=== PATIENT | female | born 1970 | race Caucasian/White ===

== ENCOUNTER 2020-01-27 23:08 | Inpatient (IN) ==
[2020-01-28] MEDS ORDERED: GLUCAGON 1 MG VIAL IM PRN (01:39)
[2020-01-28] MEDS ORDERED: diphenhydrAMINE CAP 25 MG CAPSULE PO PRN (01:39)
[2020-01-28] MEDS ORDERED: ZALEPLON 5 MG CAPSULE PO PRN (01:39)
[2020-01-28] MEDS ORDERED: NICOTINE 21 MG/24 HR PATCH TRANSDERM PRN (01:39)
[2020-01-28] MEDS ORDERED: DEXTROSE 10% 250 ML BAG IV PRN (01:39)
[2020-01-28] MEDS ORDERED: hydrALAZINE 20 MG/1 ML VIAL IV PRN (01:39)
[2020-01-28 02:20] LABS: Blood Urea Nitrogen 9 MG/DL (7-18); Calcium 8.3 MG/DL (8.5-10.1); Estimated Glom Filtration Rate 100 ML/MIN; Glucose 123 MG/DL (74-106); Osmolality,Calculated 269.1 MOS/KG (273-304)
[2020-01-28 02:40] LABS: Basophils # 0.1 10*3/uL (0.0-0.2); Basophils % 0.5 % (0.0-0.8); Eosinophils % 0.1 % (0.00-10.9); Hematocrit 53.4 VOL% (35.7-47.0); Hemoglobin 17.1 GM/DL (12.0-16.0); Immature Granulocytes % 0.6 %; Immature Granulocytes Absolute 0.08 #; Lymphocytes # 0.9 10*3/uL (1.4-4.0); Lymphocytes % 6.1 % (21.3-54.2); Mean Corpuscular Volume 95.4 FL (87-102); Mean Platelet Volume 11.4 FL (9.6-12.0); Monocytes % 4.5 % (1.7-12.7); Neutrophils % 88.2 % (38.7-73.9); Platelet Count 239 T/CUMM (130-400); Red Cell Distribution Width 14.4 % (9.3-17.3); White Blood Count 14.3 T/CUMM (4-12)
[2020-01-28] MEDS: cefTRIAXone 1,000 MG in SYRINGE 1 EACH IV SCH (03:18)
[2020-01-28] MEDS: SODIUM CHLOR 0.9% KCL 20 MEQ 20 MEQ/1,000 ML BAG IV SCH ×2 (03:22→17:38)
[2020-01-28] MEDS: metroNIDAZOLE INJ 500 MG in PREMIX 1 EACH IV SCH ×3 (03:23→17:36)
[2020-01-28] MEDS: MORPHINE 4 MG/1 ML VIAL IV PRN ×2 (03:28→21:08)
[2020-01-28] MEDS: ONDANSETRON 4 MG/2 ML VIAL IV PRN ×2 (03:31→21:09)
[2020-01-28 05:01] LABS: Lymphocytes 8 % (20-55); Segmented Neutrophils 84 % (50-85); Total Cells Counted 100
[2020-01-28 05:02] LABS: Anisocytosis Slight; Platelet Estimate Normal
[2020-01-28 06:13] LABS: Albumin 3.1 G/DL (3.4-5.0); Bilirubin,Direct 2.73 MG/DL (0.0-0.20); Bilirubin,Indirect 1.2 MG/DL (0.0-1.0); Bilirubin,Total 3.9 MG/DL (0.2-1.0); Total Protein 7.4 G/DL (6.4-8.3)
[2020-01-28] MEDS: ALBUTEROL 2.5 MG/3 ML NEB RESP TX SCH ×3 (07:22→19:30)
[2020-01-28] MEDS: PANTOPRAZOLE 40 MG VIAL IV SCH (10:00)
[2020-01-28] MEDS: ENOXAPARIN 40 MG/0.4 ML SYRINGE SUBCUT SCH (10:01)
[2020-01-28 11:07] LABS: Hepatitis B Core IgM Quant 0.16 Index; Hepatitis B Surface Ag Quant 0.22 Index; Hepatitis B Surface Ag Result Negative (Negative); Hepatitis C Virus Ab Quant 0.08 Index; Hepatitis C Virus Ab Result Negative (Negative)
[2020-01-29] MEDS: ALBUTEROL 2.5 MG/3 ML NEB RESP TX SCH ×4 (00:20→19:35)
[2020-01-29] MEDS: ONDANSETRON 4 MG/2 ML VIAL IV PRN ×5 (02:18→20:27)
[2020-01-29] MEDS: cefTRIAXone 1,000 MG in SYRINGE 1 EACH IV SCH (02:18)
[2020-01-29] MEDS: MORPHINE 4 MG/1 ML VIAL IV PRN ×6 (02:18→22:33)
[2020-01-29] MEDS: SODIUM CHLOR 0.9% KCL 20 MEQ 20 MEQ/1,000 ML BAG IV SCH ×2 (02:19→16:19)
[2020-01-29] MEDS: metroNIDAZOLE INJ 500 MG in PREMIX 1 EACH IV SCH ×3 (02:19→18:12)
[2020-01-29 06:32] LABS: Basophils # 0.1 10*3/uL (0.0-0.2); Basophils % 0.3 % (0.0-0.8); Eosinophils % 0.1 % (0.00-10.9); Hematocrit 46.8 VOL% (35.7-47.0); Hemoglobin 15.4 GM/DL (12.0-16.0); Immature Granulocytes % 0.9 %; Immature Granulocytes Absolute 0.17 #; Lymphocytes # 1.7 10*3/uL (1.4-4.0); Mean Corpuscular HGB Conc 32.9 GM/DL (32-36); Mean Corpuscular Volume 94.7 FL (87-102); Mean Platelet Volume 10.4 FL (9.6-12.0); Monocytes % 6.6 % (1.7-12.7); Neutrophils % 83.1 % (38.7-73.9); Platelet Count 236 T/CUMM (130-400); Red Blood Count 4.94 MC/CUMM (3.8-5.5); White Blood Count 18.7 T/CUMM (4-12)
[2020-01-29 07:00] LABS: Bilirubin,Direct 0.41 MG/DL (0.0-0.20); Bilirubin,Indirect 1.4 MG/DL (0.0-1.0); Bilirubin,Total 1.8 MG/DL (0.2-1.0); Osmolality,Calculated 281.3 MOS/KG (273-304); Total Protein 7.5 G/DL (6.4-8.3)
[2020-01-29] MEDS: ENOXAPARIN 40 MG/0.4 ML SYRINGE SUBCUT SCH (09:27)
[2020-01-29] MEDS: VENLAFAXINE XR 75 MG CAPSULE PO SCH (09:27)
[2020-01-29] MEDS: PANTOPRAZOLE 40 MG VIAL IV SCH (09:27)
[2020-01-30] MEDS: MORPHINE 4 MG/1 ML VIAL IV PRN ×5 (00:57→22:13)
[2020-01-30] MEDS: ONDANSETRON 4 MG/2 ML VIAL IV PRN ×2 (00:58→19:36)
[2020-01-30] MEDS: ALBUTEROL 2.5 MG/3 ML NEB RESP TX SCH ×4 (01:19→19:13)
[2020-01-30] MEDS: cefTRIAXone 1,000 MG in SYRINGE 1 EACH IV SCH (01:22)
[2020-01-30] MEDS: metroNIDAZOLE INJ 500 MG in PREMIX 1 EACH IV SCH ×3 (02:33→17:50)
[2020-01-30 05:10] LABS: Basophils # 0.1 10*3/uL (0.0-0.2); Basophils % 0.4 % (0.0-0.8); Eosinophils % 0.1 % (0.00-10.9); Hematocrit 42.6 VOL% (35.7-47.0); Hemoglobin 13.5 GM/DL (12.0-16.0); Immature Granulocytes % 0.9 %; Immature Granulocytes Absolute 0.14 #; Lymphocytes # 1.5 10*3/uL (1.4-4.0); Lymphocytes % 9.3 % (21.3-54.2); Mean Corpuscular HGB Conc 31.7 GM/DL (32-36); Mean Corpuscular Volume 95.9 FL (87-102); Mean Platelet Volume 10.8 FL (9.6-12.0); Neutrophils % 81.3 % (38.7-73.9); Platelet Count 217 T/CUMM (130-400); Red Blood Count 4.44 MC/CUMM (3.8-5.5); Red Cell Distribution Width 14.9 % (9.3-17.3); White Blood Count 16.3 T/CUMM (4-12)
[2020-01-30 05:18] LABS: INR 1.1; PT Patient Result 11.4 SECS (9.8-11.9)
[2020-01-30 05:28] LABS: Albumin 2.6 G/DL (3.4-5.0); Bilirubin,Direct 0.34 MG/DL (0.0-0.20); Bilirubin,Indirect 1.7 MG/DL (0.0-1.0); Calcium 8.1 MG/DL (8.5-10.1); Osmolality,Calculated 281.3 MOS/KG (273-304); Total Protein 6.7 G/DL (6.4-8.3)
[2020-01-30] MEDS: SODIUM CHLOR 0.9% KCL 20 MEQ 20 MEQ/1,000 ML BAG IV SCH ×3 (06:18→15:34)
[2020-01-30] MEDS ORDERED: INDOMETHACIN SUPP 50 MG SUPP RECTAL ONE ×2 (08:00→09:00)
[2020-01-30] MEDS ORDERED: propofoL 200 MG/20 ML VIAL IV ONE (09:00)
[2020-01-30] MEDS ORDERED: ROCURONIUM 100 MG/10 ML VIAL IV ONE (09:00)
[2020-01-30] MEDS ORDERED: LIDOCAINE 2% 5 ML VIAL ONE (09:00)
[2020-01-30] MEDS ORDERED: SUCCINYLCHOLINE 200 MG/10 ML VIAL ONE (09:00)
[2020-01-30] MEDS ORDERED: SEVOFLURANE 1 UNIT/15 MINUTE INH ONE (09:00)
[2020-01-30] MEDS: LACTATED RINGERS 1,000 ML IV SCH (09:09)
[2020-01-30] MEDS: VENLAFAXINE XR 75 MG CAPSULE PO SCH (11:58)
[2020-01-30] MEDS: PANTOPRAZOLE 40 MG VIAL IV SCH (11:58)
[2020-01-30] MEDS: POTASSIUM CHLORIDE RIDER 10 MEQ in PREMIX 1 EACH IV PRN ×3 (15:00→17:00)
[2020-01-31] MEDS: cefTRIAXone 1,000 MG in SYRINGE 1 EACH IV SCH (01:10)
[2020-01-31] MEDS: ALBUTEROL 2.5 MG/3 ML NEB RESP TX SCH ×5 (01:45→19:16)
[2020-01-31] MEDS: ONDANSETRON 4 MG/2 ML VIAL IV PRN ×3 (01:52→22:33)
[2020-01-31] MEDS: MORPHINE 4 MG/1 ML VIAL IV PRN ×7 (01:53→22:33)
[2020-01-31] MEDS: metroNIDAZOLE INJ 500 MG in PREMIX 1 EACH IV SCH ×3 (01:56→17:40)
[2020-01-31 07:18] LABS: Basophils # 0.1 10*3/uL (0.0-0.2); Basophils % 0.6 % (0.0-0.8); Eosinophils # 0.2 10*3/uL (0.0-0.87); Eosinophils % 1.3 % (0.00-10.9); Hematocrit 39.8 VOL% (35.7-47.0); Hemoglobin 12.8 GM/DL (12.0-16.0); Immature Granulocytes % 0.7 %; Lymphocytes # 1.4 10*3/uL (1.4-4.0); Lymphocytes % 10.7 % (21.3-54.2); Mean Corpuscular HGB Conc 32.2 GM/DL (32-36); Mean Corpuscular Volume 96.1 FL (87-102); Mean Platelet Volume 10.5 FL (9.6-12.0); Monocytes % 8.8 % (1.7-12.7); Neutrophils % 77.9 % (38.7-73.9); Platelet Count 211 T/CUMM (130-400); Red Blood Count 4.14 MC/CUMM (3.8-5.5); Red Cell Distribution Width 14.6 % (9.3-17.3); White Blood Count 13.5 T/CUMM (4-12)
[2020-01-31] MEDS: SODIUM CHLOR 0.9% KCL 20 MEQ 20 MEQ/1,000 ML BAG IV SCH ×2 (07:25→20:05)
[2020-01-31] MEDS ORDERED: INDOMETHACIN SUPP 50 MG SUPP RECTAL ONE (08:00)
[2020-01-31] MEDS: LACTATED RINGERS 1,000 ML IV SCH (08:07)
[2020-01-31 08:10] LABS: Albumin 2.5 G/DL (3.4-5.0); Bilirubin,Total 0.7 MG/DL (0.2-1.0); Calcium 7.8 MG/DL (8.5-10.1); Osmolality,Calculated 271.8 MOS/KG (273-304); Total Protein 6.8 G/DL (6.4-8.3)
[2020-01-31] MEDS: VENLAFAXINE XR 75 MG CAPSULE PO SCH (09:05)
[2020-01-31] MEDS: PANTOPRAZOLE 40 MG VIAL IV SCH (09:05)
[2020-01-31] MEDS: ACETAMINOPHEN 325 MG TABLET PO PRN (10:12)
[2020-02-01] MEDS: ALBUTEROL 2.5 MG/3 ML NEB RESP TX SCH ×4 (00:30→19:23)
[2020-02-01] MEDS: cefTRIAXone 1,000 MG in SYRINGE 1 EACH IV SCH (01:38)
[2020-02-01] MEDS: metroNIDAZOLE INJ 500 MG in PREMIX 1 EACH IV SCH ×4 (01:40→18:03)
[2020-02-01] MEDS: ONDANSETRON 4 MG/2 ML VIAL IV PRN (02:35)
[2020-02-01] MEDS: MORPHINE 4 MG/1 ML VIAL IV PRN ×2 (02:36→05:16)
[2020-02-01 05:28] LABS: Basophils # 0.1 10*3/uL (0.0-0.2); Basophils % 0.5 % (0.0-0.8); Eosinophils # 0.3 10*3/uL (0.0-0.87); Eosinophils % 1.9 % (0.00-10.9); Hematocrit 39.9 VOL% (35.7-47.0); Hemoglobin 12.6 GM/DL (12.0-16.0); Immature Granulocytes % 0.5 %; Immature Granulocytes Absolute 0.08 #; Lymphocytes # 1.6 10*3/uL (1.4-4.0); Lymphocytes % 10.7 % (21.3-54.2); Mean Corpuscular HGB Conc 31.6 GM/DL (32-36); Mean Corpuscular Volume 97.3 FL (87-102); Mean Platelet Volume 10.6 FL (9.6-12.0); Monocytes % 8.1 % (1.7-12.7); Neutrophils % 78.3 % (38.7-73.9); Platelet Count 254 T/CUMM (130-400); Red Cell Distribution Width 14.5 % (9.3-17.3); White Blood Count 14.8 T/CUMM (4-12)
[2020-02-01 05:45] LABS: INR 1.1; PT Patient Result 11.3 SECS (9.8-11.9)
[2020-02-01 05:53] LABS: Albumin 2.5 G/DL (3.4-5.0); Bilirubin,Total 1.1 MG/DL (0.2-1.0); Calcium 8.1 MG/DL (8.5-10.1); Total Protein 6.8 G/DL (6.4-8.3)
[2020-02-01] MEDS ORDERED: ceFAZolin 1,000 MG in SYRINGE 1 EACH IV ONE (06:00)
[2020-02-01] MEDS ORDERED: BUPIVACAINE MPF 0.25% 30 ML VIAL ONE (06:41)
[2020-02-01] MEDS ORDERED: LIDOCAINE 1%/EPI INJ 20 ML VIAL ONE (06:41)
[2020-02-01] MEDS ORDERED: SCOPOLAMINE 1.5 MG PATCH TRANSDERM ONE ×2 (06:59→07:02)
[2020-02-01] MEDS: SODIUM CHLOR 0.9% KCL 20 MEQ 20 MEQ/1,000 ML BAG IV SCH ×4 (07:11→17:06)
[2020-02-01] MEDS ORDERED: SUGAMMADEX 200 MG/2 ML VIAL IV ONE (08:05)
[2020-02-01] MEDS ORDERED: GLUCAGON 1 MG VIAL ONE (08:19)
[2020-02-01] MEDS ORDERED: TISSUE ADHESIVE 1 EACH APPLICATOR TOP ONE (08:43)
[2020-02-01] MEDS ORDERED: propofoL 200 MG/20 ML VIAL IV ONE (09:09)
[2020-02-01] MEDS ORDERED: fentaNYL 100 MCG/2 ML VIAL ONE (09:09)
[2020-02-01] MEDS ORDERED: LIDOCAINE 2% 5 ML VIAL ONE (09:09)
[2020-02-01] MEDS ORDERED: SEVOFLURANE 1 UNIT/15 MINUTE INH ONE (09:09)
[2020-02-01] MEDS ORDERED: MIDAZOLAM 2 MG/2 ML VIAL ONE (09:10)
[2020-02-01] MEDS ORDERED: LACTATED RINGERS 1,000 ML IV ONE (09:10)
[2020-02-01] MEDS ORDERED: DEXAMETHASONE 4 MG/1 ML VIAL ONE (09:10)
[2020-02-01] MEDS ORDERED: KETOROLAC 30 MG/1 ML VIAL ONE (09:10)
[2020-02-01] MEDS ORDERED: ONDANSETRON 4 MG/2 ML VIAL ONE (09:10)
[2020-02-01] MEDS ORDERED: ROCURONIUM 100 MG/10 ML VIAL IV ONE (09:10)
[2020-02-01] MEDS: LACTATED RINGERS 1,000 ML IV SCH (09:13)
[2020-02-01] MEDS: VENLAFAXINE XR 75 MG CAPSULE PO SCH (10:00)
[2020-02-01] MEDS: PANTOPRAZOLE 40 MG VIAL IV SCH (10:00)
[2020-02-02] MEDS: ALBUTEROL 2.5 MG/3 ML NEB RESP TX SCH ×2 (00:43→07:16)
[2020-02-02] MEDS: metroNIDAZOLE INJ 500 MG in PREMIX 1 EACH IV SCH (02:52)
[2020-02-02] MEDS: cefTRIAXone 1,000 MG in SYRINGE 1 EACH IV SCH (02:52)
[2020-02-02] MEDS: SODIUM CHLOR 0.9% KCL 20 MEQ 20 MEQ/1,000 ML BAG IV SCH (03:49)
[2020-02-02] MEDS: MORPHINE 4 MG/1 ML VIAL IV PRN (05:11)
[2020-02-02 07:36] LABS: Basophils # 0.1 10*3/uL (0.0-0.2); Basophils % 0.4 % (0.0-0.8); Eosinophils # 0.1 10*3/uL (0.0-0.87); Eosinophils % 0.4 % (0.00-10.9); Hematocrit 37.2 VOL% (35.7-47.0); Immature Granulocytes % 0.7 %; Immature Granulocytes Absolute 0.09 #; Lymphocytes # 2.4 10*3/uL (1.4-4.0); Lymphocytes % 17.8 % (21.3-54.2); Mean Corpuscular HGB Conc 32.3 GM/DL (32-36); Mean Corpuscular Volume 94.7 FL (87-102); Mean Platelet Volume 10.6 FL (9.6-12.0); Monocytes % 8.2 % (1.7-12.7); Neutrophils % 72.5 % (38.7-73.9); Platelet Count 262 T/CUMM (130-400); Red Blood Count 3.93 MC/CUMM (3.8-5.5); Red Cell Distribution Width 14.7 % (9.3-17.3); White Blood Count 13.4 T/CUMM (4-12)
[2020-02-02 07:49] VITALS: BP 151/69
[2020-02-02 07:55] LABS: Albumin 2.1 G/DL (3.4-5.0); Bilirubin,Total 0.4 MG/DL (0.2-1.0); Calcium 7.9 MG/DL (8.5-10.1); Osmolality,Calculated 281.3 MOS/KG (273-304); Total Protein 6.2 G/DL (6.4-8.3)
[2020-02-02] MEDS: PANTOPRAZOLE 40 MG VIAL IV SCH (08:36)
[2020-02-02] MEDS: VENLAFAXINE XR 75 MG CAPSULE PO SCH (08:36)
[2020-02-02] MEDS: ACETAMINOPHEN 325 MG TABLET PO PRN (08:36)
== END 2020-02-02 10:55 | disposition home or self-care (01) | DRG 419 ==
LOC: N.3E 01-28 01:21 → SUATTDRO 01-28 01:21
PROVIDERS: ADMIT Internal Medicine; ATTEND Hospitalist
PROC: LAPCHOL (2020-02-01 07:06)